=== PATIENT | female | born 1950 | race Two or more races ===

== ENCOUNTER 2018-07-20 06:39 | Day surgery (SDC) | payer OTHER ==
[~2018-07-20 06:39] MED LIST: CRESTOR5 MG PO; HYZAAR 50-12.51 EACH PO; INDUR PO; NORVASC5 MG PO; SYNTHROID50 MCG PO
[2018-07-20] MEDS ORDERED: NUPERCAINAL56.7 GM TOP (09:26)
[2018-07-20] MEDS ORDERED: PERCOCET 5-3251 EACH PO (09:26)
== END 2018-07-20 14:40 | disposition home or self-care (01) ==
LOC: CIR.AMB 06:39
DX: K64.4 Residual hemorrhoidal skin tags (principal); K64.8 Other hemorrhoids